=== PATIENT | male | born 1990 | race African-American/Black ===

== ENCOUNTER 2023-06-05 14:38 | Emergency (ER) | payer SELFPAY ==
[~2023-06-05] VITALS: Ht 182.9 cm; Wt 86.0 kg
[2023-06-05 14:41] VITALS: BP 167/99; PULSE 81; RESP 16; O2SAT 97
[2023-06-05 15:43] LABS: BASOPHILS % 0.5 % (0.0-2.0); CHLORIDE 106 mEq/L (98-107); EOSINOPHILS % 0.9 % (0.0-5.0); HEMATOCRIT. 48.6 % (42.0-52.0); INDEX HEMOLYSI 1 (1-3); INDEX ICTERIC 1 (1-4); INDEX LIPEMIC 1 (1-3); LYMPHOCYTES % 37.6 % (20.0-50.0); MEAN CORPUSCULAR HEMOGLOBIN 29.3 pg (28.0-32.0); MEAN CORPUSCULAR VOLUME 88.8 fL (80.0-94.0); MEAN PLATELET VOLUME 9.2 fl (7.4-10.4); MONOCYTES % 8.8 % (2.0-8.0); NEUTROPHILS % 52.2 % (40.0-76.0); PLATELET 280 x1000/uL (130-400); RED BLOOD CELL COUNT 5.47 mill/uL (4.7-6.1); RED CELL DISTRIBUTION WIDTH 13.1 % (11.6-14.6); SODIUM 139 mEq/L (136-145); WHITE BLOOD COUNT 7.8 x1000/uL (4.5-11.0)
[2023-06-05 15:53] LABS: ALANINE AMINOTRANSFERASE 106 IU/L (13-61); ALBUMIN 4.1 g/dL (3.4-5.0); ASPARTATE AMINOTRANSFERASE 38 IU/L (15-37); BILIRUBIN TOTAL 0.3 mg/dL (0.1-1.0); CALCIUM 9.2 mg/dL (8.5-10.1); CARBON DIOXIDE 27 mEq/L (21-32); CREATININE 1.2 mg/dL (0.6-1.3); GLUCOSE 108 mg/dL (70-105); PROTEIN TOTAL 7.8 g/dL (6.0-8.3); UREA NITROGEN BLOOD 8 mg/dL (7-21)
[2023-06-05] MEDS ORDERED: TETANUS, DIPHTHERIA, PERTUSSIS VAC/PF 0.5ML (>10YR OLD) IM ONE (18:30)
[2023-06-05] MEDS ORDERED: LIDOCAINE HCL/PF 1% 10 MG/ML 5ML VIAL INFIL ONE (18:30)
[2023-06-05] MEDS ORDERED: T3 PO (20:57)
[2023-06-05] MEDS ORDERED: CEPH500C2 MT (20:57)
== END 2023-06-05 23:41 | disposition home or self-care (01) ==
LOC: ER 14:46
DX: S01.312A Laceration without foreign body of left ear, initial encounter (principal); W18.39XA Other fall on same level, initial encounter; Y93.89 Activity, other specified; Y92.89 Other specified places as the place of occurrence of the external cause; Y99.8 Other external cause status
CPT/HCPCS: 80053; 85025; 36415; 70450; 90715; 93005; 12011; 90471; 99285; J3490; Z7610

== ENCOUNTER 2023-07-03 08:07 | Emergency (ER) | payer OTHER ==
[~2023-07-03] VITALS: Ht 188 cm; Wt 113.0 kg
[~2023-07-03 08:07] MED LIST: CEPH500C2 MT; T3 PO
[2023-07-03 08:14] VITALS: O2SAT 100
[2023-07-03 10:36] VITALS: BP 138/85; PULSE 72; RESP 20; TEMP 98.1
== END 2023-07-03 10:37 | disposition home or self-care (01) ==
LOC: ER 08:07
DX: S01.312D Laceration without foreign body of left ear, subsequent encounter (principal); W19.XXXD Unspecified fall, subsequent encounter
CPT/HCPCS: 99281

== ENCOUNTER 2024-01-22 18:57 | Emergency (ER) | payer OTHER ==
[~2024-01-22] VITALS: Ht 182.9 cm; Wt 100.0 kg
[2024-01-22 19:05] VITALS: O2SAT 99
[2024-01-22 20:00] VITALS: TEMP 99.3
[2024-01-22] MEDS: KETOROLAC 60MG/2ML VIAL IM ONE (20:27)
[2024-01-22] MEDS: MORPHINE SULFATE 4 MG/ML INJ (FOR IV/IM USE) IV ONE (21:07)
[2024-01-22 22:00] VITALS: BP 143/101; PULSE 90; RESP 15
[2024-01-22] MEDS ORDERED: ACET-2708 MT (23:12)
[2024-01-22] MEDS ORDERED: NAPR220C61 MT (23:12)
== END 2024-01-23 00:49 | disposition home or self-care (01) ==
LOC: ER 20:14
DX: S89.92XA Unspecified injury of left lower leg, initial encounter (principal); G89.11 Acute pain due to trauma; V49.49XA Driver injured in collision with other motor vehicles in traffic accident, initial encounter; Y93.89 Activity, other specified; Y92.89 Other specified places as the place of occurrence of the external cause; Y99.8 Other external cause status
CPT/HCPCS: 73564; 96372; 96374; 99284; J1885; J2270; Z7610 ×3; L1830

== ENCOUNTER 2024-03-28 16:15 | Emergency (ER) | payer OTHER ==
[~2024-03-28] VITALS: Ht 188 cm; Wt 118.0 kg
[~2024-03-28 16:15] MED LIST changes: +ACET-2708 MT; +NAPR220C61 MT
[2024-03-28 16:37] VITALS: TEMP 98.2; O2SAT 99
[2024-03-28] MEDS: IBUPROFEN 400MG TABLET PO ONE (18:48)
[2024-03-28] MEDS: ACETAMINOPHEN 325MG TABLET PO ONE (18:48)
[2024-03-28] MEDS: DEXAMETHASONE 10 MG/ML VIAL IM ONE (18:48)
[2024-03-28] MEDS ORDERED: IBUP-2028 MT (19:17)
[2024-03-28 19:24] VITALS: BP 143/94; PULSE 74; RESP 18
[2024-03-29] MEDS ORDERED: NAPR500T7 MT (19:50)
[2024-03-29] MEDS ORDERED: LIDO1ADH7 TP (19:50)
== END 2024-03-28 19:32 | disposition home or self-care (01) ==
LOC: ER 16:15
DX: B34.9 Viral infection, unspecified (principal); Z20.822 Contact with and (suspected) exposure to COVID-19
CPT/HCPCS: 99283; 87426; 87430; 87070; 96372; J1100

== ENCOUNTER 2024-03-29 18:21 | Emergency (ER) | payer OTHER ==
[~2024-03-29] VITALS: Ht 188 cm; Wt 120.0 kg
[~2024-03-29 18:21] MED LIST changes: +IBUP-2028 MT
[2024-03-29 18:38] VITALS: TEMP 98.2; O2SAT 97
[2024-03-29] MEDS ORDERED: KETOROLAC 60MG/2ML VIAL IM ONE (19:30)
[2024-03-29] MEDS ORDERED: LIDO1ADH7 TP (19:50)
[2024-03-29] MEDS ORDERED: NAPR500T7 MT (19:50)
[2024-03-29] MEDS ORDERED: KETOROLAC 60MG/2ML VIAL IM NR (20:30)
[2024-03-29] MEDS: KETOROLAC 30MG/ML VIAL IM NR (20:34)
[2024-03-29 20:40] VITALS: BP 151/103; PULSE 114; RESP 16
== END 2024-03-29 22:03 | disposition home or self-care (01) ==
LOC: ER 18:21
DX: M54.50 Low back pain, unspecified (principal); M79.604 Pain in right leg; J02.9 Acute pharyngitis, unspecified; Z79.899 Other long term (current) drug therapy
CPT/HCPCS: 99283; 96372; J1885